=== PATIENT | male | born 1945 | race Hispanic/Latino ===

== ENCOUNTER 2022-04-11 14:58 | Inpatient (IN) | payer MEDICARE ==
[2022-04-11 18:18] VITALS: BMI 31.2
[2022-04-11] MEDS ORDERED: Acetaminophen 325 MG TAB PO PRN (18:20)
[2022-04-11] MEDS ORDERED: Ondansetron PF 4 MG/2 ML Vial IVP PRN (18:20)
[2022-04-11] MEDS ORDERED: HYDROcodone/Acetaminophen 5/325 mg Tablet PO PRN (18:20)
[2022-04-11] MEDS ORDERED: Calcium Carbonate 500 MG ChewTAB PO PRN (18:20)
[2022-04-11] MEDS ORDERED: Senokot S 8.6-50 MG TAB PO PRN (18:20)
[2022-04-11] MEDS ORDERED: Dextrose 50% Abboject 50 ML SYRINGE SLOW IVP PRN (18:24)
[2022-04-11] MEDS ORDERED: Dextrose 5% in Water 1,000 ML IV PRN (18:24)
[2022-04-11] MEDS ORDERED: HumaLOG 300 UNITS/3 ML VIAL SC PRN (18:24)
[2022-04-11] MEDS ORDERED: FLU VACC QS2022-23(65YR UP)/PF 240 MCG/0.7 ML SYRINGE IM ONE (19:00)
[2022-04-11 19:22] LABS: Troponin I Less than 0.010 ng/mL (< 0.028)
[2022-04-11] MEDS ORDERED: Furosemide 40 MG/4 ML VIAL SLOW IVP SCH (20:00)
[2022-04-11] MEDS: Famotidine 20 MG TAB PO SCH (21:00)
[2022-04-11] MEDS: Atorvastatin Calcium 40 MG TAB PO SCH (21:00)
[2022-04-11 21:59] LABS: Troponin I Less than 0.010 ng/mL (< 0.028)
[2022-04-12 05:36] LABS: ALT (SGPT) 14 U/L (8-55); AST (SGOT) 16 U/L (5-34); Albumin 3.9 g/dL (3.4-4.8); Alkaline Phosphatase 91 U/L (40-110); Anion Gap 14 mmol/L (10-20); BUN (Urea Nitrogen) 28 mg/dL (8.4-25.7); Bilirubin, Total 0.5 mg/dL (0.2-1.2); Calc. Creatinine Clearance 60 mL/min (70-130); Calcium 9.4 mg/dL (7.8-10.44); Carbon Dioxide 30 mmol/L (23-31); Chloride 102 mmol/L (98-107); Estimated GFR 44; Globulin 3.1 g/dL (2.4-3.5); Glucose 117 mg/dL (83-110); Magnesium 2.1 mg/dL (1.6-2.6); Potassium 5.2 mmol/L (3.5-5.1); Sodium 141 mmol/L (136-145)
[2022-04-12] MEDS: Famotidine 20 MG TAB PO SCH ×2 (08:15→20:22)
[2022-04-12] MEDS: Amiodarone 200 MG TAB PO SCH (08:16)
[2022-04-12] MEDS: Glimepiride 2 MG TAB PO SCH (08:16)
[2022-04-12] MEDS: Aspirin 81 mg Enteric Coated Tablet PO SCH (08:16)
[2022-04-12] MEDS: Enoxaparin Sodium 30 MG/0.3 ML SYRINGE SC SCH (08:16)
[2022-04-12] MEDS ORDERED: Furosemide 40 MG/4 ML VIAL SLOW IVP SCH (09:00)
[2022-04-12] MEDS: Atorvastatin Calcium 40 MG TAB PO SCH (20:22)
[2022-04-13 06:40] LABS: Anion Gap 14 mmol/L (10-20); BUN (Urea Nitrogen) 22 mg/dL (8.4-25.7); Calc. Creatinine Clearance 77 mL/min (70-130); Calcium 9.2 mg/dL (7.8-10.44); Carbon Dioxide 24 mmol/L (23-31); Chloride 105 mmol/L (98-107); Estimated GFR 58; Glucose 100 mg/dL (83-110); Potassium 4.4 mmol/L (3.5-5.1); Sodium 139 mmol/L (136-145)
[2022-04-13] MEDS: Glimepiride 2 MG TAB PO SCH (06:51)
[2022-04-13 08:18] VITALS: BP 131/58; TEMP 97.9
[2022-04-13] MEDS: Famotidine 20 MG TAB PO SCH (08:30)
[2022-04-13] MEDS: Enoxaparin Sodium 30 MG/0.3 ML SYRINGE SC SCH (08:30)
[2022-04-13] MEDS: Aspirin 81 mg Enteric Coated Tablet PO SCH (08:30)
[2022-04-13] MEDS: Amiodarone 200 MG TAB PO SCH (08:30)
== END 2022-04-13 11:09 | disposition home or self-care (01) | DRG 291 ==
LOC: INTOOBSV 17:53 → CSHTELE 17:53 → OBSVTOIN 04-13 09:12
PROVIDERS: ADMIT Family Medicine; ATTEND Family Medicine
DX: I13.0 Hypertensive heart and chronic kidney disease with heart failure and stage 1 through stage 4 chronic kidney disease, or unspecified chronic kidney disease (principal); I50.23 Acute on chronic systolic (congestive) heart failure; N17.9 Acute kidney failure, unspecified; I25.10 Atherosclerotic heart disease of native coronary artery without angina pectoris; E78.5 Hyperlipidemia, unspecified; F17.210 Nicotine dependence, cigarettes, uncomplicated; I44.7 Left bundle-branch block, unspecified; N18.9 Chronic kidney disease, unspecified; E11.22 Type 2 diabetes mellitus with diabetic chronic kidney disease; E87.5 Hyperkalemia; Z20.822 Contact with and (suspected) exposure to COVID-19; Z79.899 Other long term (current) drug therapy; Z79.82 Long term (current) use of aspirin; Z95.1 Presence of aortocoronary bypass graft
CPT/HCPCS: 36416; 80048; 80053; 83735; 83880; 84443; 93306; 96372; 96374; G0378; J1650; J1940; U0003; U0005